=== PATIENT | female | born 1965 | race Hispanic/Latino ===

== ENCOUNTER 2020-03-20 06:39 | Day surgery (SDC) | payer OTHER ==
[2020-03-20 07:39] LABS: Basophils % (Auto) 0.7 % (0.0-1.8); Eosinophils # (Auto) 0.2 K/mm3 (0.0-0.4); Eosinophils % (Auto) 3.2 % (0.0-4.3); Hematocrit 37.6 % (30.3-42.9); Hemoglobin 12.6 gm/dl (10.1-14.3); Lymphocytes # (Auto) 1.7 K/mm3 (1.2-5.4); Lymphocytes % (Auto) 23.3 % (13.4-35.0); Mean Corpuscular HGB Conc 34 % (30-34); Mean Corpuscular Volume 87 fl (79-97); Monocytes # (Auto) 0.6 K/mm3 (0.0-0.8); Monocytes % (Auto) 8.8 % (0.0-7.3); Platelet Count 242 K/mm3 (140-440); Red Blood Count 4.32 M/mm3 (3.65-5.03); Red Cell Distribution Width 15.1 % (13.2-15.2)
[2020-03-20 07:49] LABS: INR 0.95 (0.87-1.13)
[2020-03-20 07:50] LABS: Partial Thromboplastin Time 28.1 Sec. (24.2-36.6)
[2020-03-20 07:53] LABS: BUN/Creatinine Ratio 19; Blood Urea Nitrogen 17 mg/dL (7-17); Calcium 9.5 mg/dL (8.4-10.2); Hemolysis Index 0
[2020-03-20] MEDS ORDERED: SODIUM CHLORIDE 0.9% 500 ML 500 ML IV SCH (08:00)
[2020-03-20] MEDS ORDERED: HEPARIN/NS 5000 UNIT/500ML 1,000 ML IR ONE (08:19)
[2020-03-20] MEDS ORDERED: HEPARIN 10,000 UNITS/10 ML VIAL ONE (08:19)
[2020-03-20] MEDS ORDERED: NITROGLYCERIN SYRINGE 3 ML ONE (08:20)
[2020-03-20] MEDS ORDERED: VERAPAMIL 5 MG/2 ML INJ ONE (08:20)
[2020-03-20] MEDS ORDERED: POTASSIUM CHLORIDE ER 20 MEQ TAB PO SCH (09:00)
[2020-03-20] MEDS: MIDAZOLAM 2 MG/2 ML INJ ONE ×2 (09:01→09:24)
[2020-03-20] MEDS: fentaNYL 100 MCG/2 ML INJ ONE ×3 (09:01→09:36)
[2020-03-20] MEDS: LIDOCAINE (2%) 20 MG/1 ML VIAL 20 ML MDV INFILTRATI ONE ×3 (09:02→09:36)
[2020-03-20] MEDS ORDERED: traMADol 50 MG TAB PO PRN (10:09)
[2020-03-20] MEDS ORDERED: HYDROcodone/ACETAMINOPHEN 5-325 MG TAB PO PRN (10:09)
--- NOTE | 2020-03-20 10:16 | Short Stay Summary ---
Short Stay Documentation Date of service: 03/20/20 - History H&P: obtained from office - Allergies and Medications Current Medications: Allergies No Known Allergies Allergy (Verified 03/20/20 07:18) Home Medications Medication Instructions Recorded Confirmed Last Taken Type ALPRAZolam [Xanax TAB] 0.5 mg PO BID PRN 02/18/15 03/20/20 03/20/20 History Albuterol Sulfate [Proair 90 mcg IH Q6H 02/18/15 03/20/20 03/19/20 History Respiclick] Aspirin EC [Ecotrin] 325 mg PO QDAY 02/18/15 03/20/20 03/20/20 History Clopidogrel Bisulfate [Plavix] 75 mg PO DAILY 02/18/15 03/20/20 03/19/20 History Hydralazine HCl [Apresoline TAB] 50 mg PO BID 02/18/15 03/20/20 03/19/20 History Insulin NPH Human Isophane 40 unit SQ BID 02/18/15 03/20/20 03/19/20 History [HumuLIN N] Levalbuterol HCl [Levalbuterol 1.25 mg IH TID PRN 02/18/15 03/20/20 03/19/20 History Concentrate] Levothyroxine (Nf) [Synthroid] 200 mcg PO QAM 02/18/15 03/20/20 03/19/20 History Losartan [Cozaar] 100 mg PO QDAY 02/18/15 03/20/20 03/19/20 History Nitroglycerin [Nitrostat] 0.4 mg SL Q5M PRN 02/18/15 03/20/20 03/19/20 History Pravastatin [Pravachol] 40 mg PO QHS 02/18/15 03/20/20 03/19/20 History Pregabalin [Lyrica] 75 mg PO BID 02/18/15 03/20/20 03/19/20 History Sertraline [Zoloft] 100 mg PO QDAY 02/18/15 03/20/20 03/19/20 History Spiriva Respimat 2.5 mcg INHALATION DAILY 02/18/15 03/20/20 03/19/20 History amLODIPine [Norvasc] 5 mg PO DAILY 02/18/15 03/20/20 03/19/20 History atenoloL [Tenormin] 50 mg PO BID 02/18/15 03/20/20 03/19/20 History hydroCHLOROthiazide [HCTZ] 25 mg PO QDAY 02/18/15 03/20/20 03/19/20 History Semaglutide [Ozempic] 0.5 mg SQ 1XW 03/20/20 03/20/20 03/19/20 History Active Medications Hydrocodone Bitart/Acetaminophen (Hydrocodone/Acetaminophen 5-325 Mg Tab) 1 each PO Q4H PRN PRN Reason: Pain, Moderate (4-6) Sodium Chloride (Nacl 0.9% 500 Ml) 500 mls @ 50 mls/hr IV DIRECT ARUN Stop: 03/20/20 17:59 Last Admin: 03/20/20 08:12 Dose: 50 mls/hr Documented by: Tramadol HCl (Tramadol 50 Mg Tab) 50 mg PO Q4H PRN PRN Reason: Pain, Mild (1-3) - Brief post op/procedure progress note Date of procedure: 03/20/20 Pre-op diagnosis: cp Post-op diagnosis: same Procedure: see report Anesthesia: local Estimated blood loss: minimal Pathology: none - Disposition Condition at discharge: Good Disposition: [id number]-01 TO HOME OR SELFCARE - Discharge Diagnoses (1) Respiratory failure with hypoxia Status: Chronic Qualifiers: Chronicity: chronic Qualified Code(s): J96.11 - Chronic respiratory failure with hypoxia (2) Chest pain Status: Acute Qualifiers: Chest pain type: unspecified Qualified Code(s): R07.9 - Chest pain, unspecified (3) CAD (coronary artery disease) Status: Chronic Qualifiers: Coronary Disease-Associated Artery/Lesion type: robinson artery [place] vs. transplanted heart: robinson heart Associated angina: with stable angina Qualified Code(s): I25.118 - Atherosclerotic heart disease of robinson coronary artery with other forms of angina pectoris (4) Diabetes Status: Chronic Qualifiers: Diabetes mellitus type: type 1 Diabetes mellitus complication status: without complication Qualified Code(s): E10.9 - Type 1 diabetes mellitus without complications (5) HTN (hypertension) Status: Chronic Qualifiers: Hypertension type: essential hypertension Qualified Code(s): I10 - Essential (primary) hypertension (6) History of PTCA Status: Chronic Short Stay Discharge Plan Activity: advance as tolerated Diet: low fat, low cholesterol, low salt, diabetic Wound: keep clean and dry Special Instructions: hold Metformin (for two days) Follow up with: WILLIE BELCHER MD [Primary Care Provider] - 7 Days
--- NOTE | 2020-03-20 10:26 | Cardiac Catherization Report ---
LEFT HEART CATHETERIZATION PROCEDURE: This is a left heart catheterization being done by Dr. Oneal. ORDERING PHYSICIAN: Dr. Pizano. CLINICAL INFORMATION: A 54-year-old female with respiratory failure, on oxygen, who has a history of the left main stent put in 2012, who is here for a left heart catheterization for chest pain and shortness of breath. Procedure was done with moderate sedation started 9:24 finished at 9:54. There is 29 minutes of moderate sedation. Procedure was initially tried via the right radial artery, unable to wire the radial artery, so changed to right common femoral artery, sterile technique, local anesthesia done under fluoroscopy, 5-[place] groin sheath inserted. FINDINGS: Left system engaged with JL4 catheter. Left main is a medium caliber vessel, patent faintly seen stent, LAD is a medium caliber vessel, patent, mild luminal irregularities. Diagonal 1 medium caliber vessel, patent. Circumflex is a large dominant vessel, patent. OM1, medium caliber vessel that is patent. LPDA medium caliber vessel, patent. RCA is a small nondominant vessel engaged with JR4 patent. LV gram done in [facility] and [facility] shows normal LV function, LVEDP 25 mmHg, aortic is 136/79. No gradient across the aortic valve on pullback. 5-[place] catheters all taken over guidewire, 5-[place] groin sheath was discontinued. Manual pressure held. No hematoma, no bleeding. SUMMARY: Left main stent patent. LAD is patent, diagonal patent, circ, dominant, patent, OM1 patent. LPDA medium caliber and patent. RCA small, nondominant vessel, patent, normal LV function. Continue medical management. Discussed this with the patient in detail. JOB# [id number] DEBRA/THEODORA
[2020-03-20 15:45] VITALS: BP 131/68
== END 2020-03-20 16:10 | disposition home or self-care (01) ==
LOC: CATHLABREC 06:39
PROVIDERS: ATTEND Internal Medicine
DX: R07.89 Other chest pain (principal); R06.02 Shortness of breath; E11.9 Type 2 diabetes mellitus without complications; I25.10 Atherosclerotic heart disease of native coronary artery without angina pectoris; I10 Essential (primary) hypertension; E78.00 Pure hypercholesterolemia, unspecified; E03.9 Hypothyroidism, unspecified; J44.9 Chronic obstructive pulmonary disease, unspecified; F32.9 Major depressive disorder, single episode, unspecified; Z83.3 Family history of diabetes mellitus; Z79.899 Other long term (current) drug therapy; Z79.82 Long term (current) use of aspirin; Z87.891 Personal history of nicotine dependence; Z98.61 Coronary angioplasty status; Z98.890 Other specified postprocedural states; Z72.89 Other problems related to lifestyle; Z80.8 Family history of malignant neoplasm of other organs or systems; Z82.5 Family history of asthma and other chronic lower respiratory diseases; Z82.61 Family history of arthritis; Z82.49 Family history of ischemic heart disease and other diseases of the circulatory system
CPT/HCPCS: 36415; 80048; 82962; 85025; 85610; 85730; 93005; 93458; 99156; 99157; C1894; J1644; J2250; J3010; J7040; Q9967